=== PATIENT | male | born 2000 | race Caucasian/White ===

== ENCOUNTER → 2021-06-25 | Outpatient (CLI) | payer OTHER ==
--- NOTE | 2021-06-25 13:16 | REP ---
INDICATION: PRE-EMPLOYMENT TESTING, EXPOSURE TO [employer] COMPARISON: None. TECHNIQUE: PA and lateral. FINDINGS: The mediastinum and cardiac silhouette are normal. The lung buckley are clear and without acute consolidation, effusion, or pneumothorax. The skeletal structures are intact and normal. IMPRESSION: No acute cardiopulmonary process. <Electronically signed by Winston Escalante > 06/25/21 [id number]
== END ==
LOC: M WUC 12:51
PROVIDERS: ATTEND Nurse Practitioner Family
DX: Z02.1 Encounter for pre-employment examination (principal); Z77.090 Contact with and (suspected) exposure to asbestos; Z02.89 Encounter for other administrative examinations